=== PATIENT | female | born 1990 | race African-American/Black ===

== ENCOUNTER 2021-06-25 08:24 | Day surgery (SDC) | payer OTHER ==
[2021-06-25 08:59] LABS: Specific Gravity 1.015 (1.005-1.030)
[2021-06-25] MEDS ORDERED: CEFAZOLIN/SWI 1gm 1 GM/10 ML SYR ONE (09:15)
[2021-06-25] MEDS ORDERED: Ringers Lactate 1,000 ML IV ONE ×3 (09:15→09:44)
[2021-06-25 09:35] VITALS: O2SAT 100
[2021-06-25] MEDS ORDERED: SCOPOLAMINE HYDROBROMIDE PATCH TD ONE (09:36)
[2021-06-25] MEDS ORDERED: GENTAMICIN SULF 80 MG/2ML INJ ONE (09:43)
[2021-06-25] MEDS ORDERED: LIDOCAINE 1% W/EPI 1:100,000 MDV 20 ML VIAL ONE (09:43)
[2021-06-25] MEDS ORDERED: NS 0.9% VIAL 40 ML ONE (09:43)
[2021-06-25] MEDS ORDERED: CEFAZOLIN SODIUM 1 GM/VIAL ONE (09:43)
[2021-06-25] MEDS ORDERED: Mastisol Adhesive Liq ONE (09:44)
[2021-06-25] MEDS ORDERED: BACITRACIN 50000 UNIT VIAL ONE (09:44)
[2021-06-25] MEDS ORDERED: LANO/MINERAL OIL/PETRO 3.5 GM ONE (09:45)
[2021-06-25] MEDS ORDERED: VECURONIUM 10 MG/VIAL IV ONE ×2 (09:45→12:21)
[2021-06-25] MEDS ORDERED: propofoL 200 MG/20 ML VIAL IV ONE (09:50)
[2021-06-25] MEDS ORDERED: LIDOCAINE 1% MPF 5 ML VIAL ONE (09:50)
[2021-06-25] MEDS ORDERED: NS 0.9% VIAL 10 ML ONE (09:50)
[2021-06-25] MEDS ORDERED: dexAMETHasone 10 MG/ML VIAL ONE (09:50)
[2021-06-25] MEDS ORDERED: FENTANYL CITR 250 MCG/5 ML ONE (09:50)
[2021-06-25] MEDS ORDERED: ONDANSETRON 4 MG/2 ML VIAL ONE ×2 (09:50→14:22)
[2021-06-25] MEDS ORDERED: MIDAZOLAM HCL 2 MG/2 ML INJ ONE (09:50)
[2021-06-25] MEDS ORDERED: KETOROLAC 30 MG/ML INJ ONE (14:22)
[2021-06-25] MEDS ORDERED: GLYCOPYRROLATE 0.2 MG/ML SYR ONE (14:22)
[2021-06-25] MEDS ORDERED: NEOSTIGMINE 1 MG/ML -5 ML ONE (14:25)
[2021-06-25] MEDS ORDERED: HYDROMORPHONE HCL 1 MG/ML INJ ONE (15:38)
[2021-06-25] MEDS ORDERED: CODEINE 30MG/APAP 300MG TAB ONE (16:16)
[2021-06-25 16:27] VITALS: BP 130/65; TEMP 97.6
--- NOTE | 2021-06-26 07:45 | OP ---
Surgeon: Noe Diaz MD Preoperative Diagnosis: Breast descent. Preoperative Diagnosis: Breast descent. Procedure: Breast lift. Anesthesia: General. Description Of Procedure: After satisfactory anesthesia, chest was prepped with DuraPrep, dry steril e drapes applied in the usual manner. A 5 cm template was used to outline the right and left areolas . Then transverse curvilinear inferior incisions were made. Intervening skin was de-epithelialized with dermabrader and with a tenotomy scissors. The right side was approached first. A scalpel used to cut down through full-thickness skin. Then, electrocautery used to elevate the flap through the s ternum, clavicle, anterior axillary line, Then, the inferior incision was made over. Then, the deepi thelialized tissue formed in a cone with 2-0 PDS suture. Straps were elevated at the 12 o'clock, 1:3 0, and 3 o'clock position. The straps were then woven in and out of pectoralis muscle back to the ba se of the cone back to pectoralis muscle back to base of cone tied themselves with 2 PDS. Done for t he 12 o'clock and 1:30 straps. The 3 o'clock strap was sewn over the sternum at 3 o'clock with 2 Eth ibond. Left side was done in mirror-image manner; however, the left side had more volume, and a wedg e of the excess breast tissue was taken laterally. The patient had a wound stapled shut and sat up, dog ears marked out laterally, returned to supine. The wounds were irrigated with antibiotic solutio n. 10 EDMUND was brought out of the axilla and then the dog ear excised with scalpel and electrocautery and the contours of the breast were reconfirmed with a scalpel and tenotomy scissors. The wounds wer e then closed with 3-0 Vicryl, then 3-0 PDS running subcuticular medial to lateral and lateral to med ial, tied in the vertical meridian of breast. Both sides were done. Then, the patient was sat up. Site for new nipple-areolar complex was marked out, placed supine. Tissue cored out with a 5 cm temp late, then closed with interrupted 4-0 PDS, followed by PDS 4-0 running subcuticular. Dressings cons isted of tincture of benzoin, Steri-Strips, followed by Esmarch, fluffs, and Cecil wrap. Patient irasema ated procedure well and returned to recovery room. Amount removed from the right breast was 60 g, le ft breast 130 g. SANTO/MODElissa Voice ID: [id number] Report ID: [id number]
== END 2021-06-25 16:45 | disposition home or self-care (01) ==
LOC: OR 08:24
PROVIDERS: ATTEND Specialist
PROC: 0HSV0ZZ Reposition Bilateral Breast, Open Approach (ICD-10-PCS; principal; 2021-06-25 09:15)
DX: N64.81 Ptosis of breast (principal); Z20.822 Contact with and (suspected) exposure to COVID-19
CPT/HCPCS: 81025; 88305; 19316; U0003; J2704; J1580; J2250; J3010; J1100; J1170; J2710; J0690 ×2; J7120 ×3; J2405 ×2